=== PATIENT | female | born 1930 | race Caucasian/White ===

== ENCOUNTER 2020-07-20 06:52 | Inpatient (IN) | payer MEDICARE, BC ==
[2020-07-20 07:38] LABS: Hemoglobin 10.3 g/dL (12.0-15.5); Mean Corpuscular HGB CONC 29.6 g/dL (32.0-36.0); Mean Corpuscular Hemoglobin 23.6 pg (27.0-33.0); Mean Corpuscular Volume 79.6 fl (81.6-98.3); Mean Platelet Volume 9.8 fl (7.4-10.4); Platelet Count 366 10x3/uL (150-450); RBC Distribution Width 16.5 % (11.5-14.5); Red Blood Cell (RBC) Count 4.37 10x6/uL (3.90-5.03); White Blood Cell (WBC) Count 24.9 10x3/uL (3.5-10.5)
[2020-07-20] MEDS ORDERED: Furosemide 40 MG/4 ML VIAL ONE (07:49)
[2020-07-20 07:59] LABS: MDiff Complete? YES
[2020-07-20 08:01] LABS: Band 1 % (5-11); Lymphocytes 6 % (21-51); Monocytes 3 % (0-10); Neutrophil 88 % (42-75); Reactive Lymphocytes 1 % (0-10)
[2020-07-20 08:03] LABS: Ovalocytes SLIGHT = 2-5 cells (100X) (0-1/hpf); Platelet Morphology Comment Appears Adequate
[2020-07-20 08:32] LABS: ALT (SGPT) 23 U/L (8-55); AST (SGOT) 27 U/L (5-34); Albumin 4.4 g/dL (3.4-4.8); Alkaline Phosphatase 107 U/L (40-110); Anion Gap 15 mmol/L (10-20); BUN (Urea Nitrogen) 20 mg/dL (9.8-20.1); Bilirubin, Total 0.7 mg/dL (0.2-1.2); Calc. Creatinine Clearance 0 mL/min (70-130); Calcium 9.1 mg/dL (7.8-10.44); Carbon Dioxide 26 mmol/L (23-31); Chloride 97 mmol/L (98-107); Globulin 2.7 g/dL (2.4-3.5); Glucose 303 mg/dL (83-110); Protein, Total 7.1 g/dL (5.8-8.1); Sodium 133 mmol/L (136-145)
[2020-07-20 10:41] LABS: Troponin I 0.033 ng/mL (< 0.028)
[2020-07-20] MEDS ORDERED: Zolpidem Tartrate 5 MG TAB PO PRN (11:31)
[2020-07-20] MEDS ORDERED: Guaifenesin DM 100-10/5 ML UDCUP PO PRN (11:31)
[2020-07-20] MEDS ORDERED: Sodium Chloride 0.65% Nasal 44 ML BOT EA NARE PRN (11:31)
[2020-07-20] MEDS ORDERED: Loperamide HCl 2 MG CAP PO PRN (11:31)
[2020-07-20] MEDS ORDERED: hydrALAZINE 20 MG/ML VIAL SLOW IVP PRN (11:31)
[2020-07-20] MEDS ORDERED: Dextrose 50% Abboject 50 ML SYRINGE SLOW IVP PRN (11:31)
[2020-07-20] MEDS ORDERED: Cepastat Lozenges 1 LOZ PO PRN (11:31)
[2020-07-20] MEDS ORDERED: Bisacodyl 10 MG SUPP PR PRN (11:31)
[2020-07-20] MEDS ORDERED: Benzonatate 100 MG CAP PO PRN (11:31)
[2020-07-20] MEDS ORDERED: Dextrose 5% in Water 1,000 ML IV PRN (11:31)
[2020-07-20] MEDS ORDERED: Ondansetron PF 4 MG/2 ML Vial IVP PRN (11:31)
[2020-07-20] MEDS ORDERED: Ondansetron ODT 4 MG TAB PO PRN (11:31)
[2020-07-20] MEDS ORDERED: HYDROcodone/Acetaminophen 5/325 mg Tablet PO PRN (11:31)
[2020-07-20] MEDS ORDERED: Acetaminophen 325 MG TAB PO PRN (11:31)
[2020-07-20] MEDS ORDERED: Senokot S 8.6-50 MG TAB PO PRN (11:31)
[2020-07-20] MEDS ORDERED: Nitroglycerin 0.4 MG TAB (25 Tab Bottle) SL PRN (11:31)
[2020-07-20] MEDS ORDERED: Loratadine 10 MG TAB PO PRN (11:31)
[2020-07-20] MEDS ORDERED: Calcium Carbonate 500 MG ChewTAB PO PRN (11:31)
[2020-07-20 13:41] LABS: Troponin I 0.037 ng/mL (< 0.028)
[2020-07-20] MEDS: Furosemide 40 MG/4 ML VIAL SLOW IVP SCH (16:11)
[2020-07-20] MEDS: Carvedilol 6.25 MG TAB PO SCH (17:50)
[2020-07-20] MEDS: Rivaroxaban 10 MG TAB PO SCH (17:50)
[2020-07-20] MEDS: HumaLOG 300 UNITS/3 ML VIAL SC PRN ×2 (17:52→19:20)
[2020-07-20] MEDS: Famotidine 20 MG TAB PO SCH (20:04)
[2020-07-20] MEDS: Atorvastatin Calcium 20 MG TAB PO SCH (20:04)
[2020-07-20 23:47] LABS: Bilirubin Neg (Negative); Blood, Urine 25 (Negative); Clarity Slightly Cloudy (Clear); Glucose, Urine (Dipstick) Normal (Negative); Ketone, Urine Negative (Negative); Leukocyte 500 (Negative); Nitrite Positive (Negative); Protein, Urine (Dipstick) 30 mg/dl (Neg-Trace); Urobilinogen Normal mg/dL (Less than 2); pH, Urine 6.5 (5.0-9.0)
[2020-07-21 00:07] LABS: Bacteria/HPF 4+ HPF (None Seen); Mucous/LPF 1+ LPF (<2+); RBC/HPF 0-3 HPF (0-3); Squamous Epithelial 0-3 HPF (0-3); White Blood Cell Cast 0-3 LPF (None Seen)
[2020-07-21 02:52] LABS: SARS-CoV-2 PCR by NAA Not Detected (NotDetected)
[2020-07-21] MEDS: HumaLOG 300 UNITS/3 ML VIAL SC PRN ×3 (04:59→17:18)
[2020-07-21] MEDS: Furosemide 40 MG/4 ML VIAL SLOW IVP SCH (05:00)
[2020-07-21] MEDS ORDERED: Levothyroxine Sodium 88 MCG TAB PO SCH (06:00)
[2020-07-21] MEDS: Famotidine 20 MG TAB PO SCH ×2 (08:09→21:18)
[2020-07-21] MEDS: Carvedilol 6.25 MG TAB PO SCH ×2 (08:10→17:18)
[2020-07-21] MEDS ORDERED: Digoxin 0.125 MG TAB PO SCH ×2 (09:00→10:45)
[2020-07-21] MEDS ORDERED: Aspirin Chewable 81 MG TAB PO SCH (09:00)
[2020-07-21 09:19] LABS: ALT (SGPT) 18 U/L (8-55); AST (SGOT) 27 U/L (5-34); Albumin 3.8 g/dL (3.4-4.8); Alkaline Phosphatase 75 U/L (40-110); Anion Gap 15 mmol/L (10-20); BUN (Urea Nitrogen) 14 mg/dL (9.8-20.1); Bilirubin, Total 0.9 mg/dL (0.2-1.2); Calc. Creatinine Clearance 46 mL/min (70-130); Calcium 8.8 mg/dL (7.8-10.44); Carbon Dioxide 29 mmol/L (23-31); Chloride 94 mmol/L (98-107); Globulin 2.8 g/dL (2.4-3.5); Glucose 156 mg/dL (83-110); Magnesium 1.7 mg/dL (1.6-2.6); Potassium 3.8 mmol/L (3.5-5.1); Protein, Total 6.6 g/dL (5.8-8.1); Sodium 134 mmol/L (136-145); Uric Acid 5.3 mg/dL (2.6-6.0)
[2020-07-21 09:21] LABS: Digoxin 0.43 ng/mL (0.8-2.0)
[2020-07-21 09:43] LABS: Hemoglobin 9.7 g/dL (12.0-15.5); Mean Corpuscular HGB CONC 29.8 g/dL (32.0-36.0); Mean Corpuscular Hemoglobin 23.2 pg (27.0-33.0); Mean Corpuscular Volume 77.8 fl (81.6-98.3); Mean Platelet Volume 9.9 fl (7.4-10.4); Platelet Count 295 10x3/uL (150-450); RBC Distribution Width 16.4 % (11.5-14.5); Red Blood Cell (RBC) Count 4.18 10x6/uL (3.90-5.03); White Blood Cell (WBC) Count 11.9 10x3/uL (3.5-10.5)
[2020-07-21 10:28] LABS: Anisocytosis SLIGHT = 6-15 cells (100X) (0-5/hpf); Eosinophils 1 % (0-10); Lymphocytes 9 % (21-51); MDiff Complete? YES; Microcytosis SLIGHT = 6-15 cells (100X) (0-5/hpf); Monocytes 9 % (0-10); Neutrophil 81 % (42-75); Poikilocytosis SLIGHT = 6-15 cells (100X) (0-5/hpf)
[2020-07-21 10:29] LABS: Hypochromia MODERATE=16-30 cells (100X) (0-5/hpf); Polychromasia SLIGHT = 2-3 cells (100X) (0-2/hpf)
[2020-07-21 10:30] LABS: Elliptocytes SLIGHT = 2-5 cells (100X) (0-1/hpf); Platelet Morphology Comment Appears Adequate
[2020-07-21] MEDS ORDERED: Spironolactone 25 MG TAB PO SCH (11:30)
[2020-07-21] MEDS: Rivaroxaban 10 MG TAB PO SCH (17:18)
[2020-07-21] MEDS: Atorvastatin Calcium 20 MG TAB PO SCH (21:17)
[2020-07-22] MEDS: Levothyroxine Sodium 100 MCG TAB PO SCH (05:13)
[2020-07-22] MEDS: HumaLOG 300 UNITS/3 ML VIAL SC PRN ×4 (05:25→20:28)
[2020-07-22 08:20] LABS: Anion Gap 12 mmol/L (10-20); BUN (Urea Nitrogen) 19 mg/dL (9.8-20.1); Calc. Creatinine Clearance 43 mL/min (70-130); Calcium 8.6 mg/dL (7.8-10.44); Carbon Dioxide 31 mmol/L (23-31); Chloride 96 mmol/L (98-107); Glucose 168 mg/dL (83-110); Magnesium 1.9 mg/dL (1.6-2.6); Potassium 3.7 mmol/L (3.5-5.1); Sodium 135 mmol/L (136-145)
[2020-07-22] MEDS: Carvedilol 6.25 MG TAB PO SCH ×2 (08:38→17:39)
[2020-07-22] MEDS: Digoxin 0.25 MG TAB PO SCH (08:38)
[2020-07-22] MEDS: Famotidine 20 MG TAB PO SCH ×2 (08:38→20:33)
[2020-07-22 08:40] LABS: #Basophils 0.1 10x3/uL (0.0-0.2); #Eosinphils 0.2 10x3/uL (0.0-0.5); #Neutrophils 8.1 10x3/uL (1.5-8.4); %Basophils 0.5 % (0.0-2.0); %Eosinophils 1.8 % (0.0-6.0); %Lymphocytes 8.8 % (18.0-47.0); %Monocytes 9.6 % (0.0-10.0); %Neutrophils 78.9 % (40.0-75.0); Hemoglobin 9.1 g/dL (12.0-15.5); Mean Corpuscular HGB CONC 29.6 g/dL (32.0-36.0); Mean Corpuscular Hemoglobin 23.2 pg (27.0-33.0); Mean Corpuscular Volume 78.3 fl (81.6-98.3); Mean Platelet Volume 9.9 fl (7.4-10.4); Platelet Count 270 10x3/uL (150-450); RBC Distribution Width 16.3 % (11.5-14.5); Red Blood Cell (RBC) Count 3.92 10x6/uL (3.90-5.03); White Blood Cell (WBC) Count 10.2 10x3/uL (3.5-10.5)
[2020-07-22] MEDS ORDERED: Furosemide 40 MG/4 ML VIAL SLOW IVP SCH (09:00)
[2020-07-22 09:33] LABS: Anisocytosis SLIGHT = 6-15 cells (100X) (0-5/hpf); Elliptocytes SLIGHT = 2-5 cells (100X) (0-1/hpf); Hypochromia SLIGHT = 6-15 cells (100X) (0-5/hpf); Microcytosis SLIGHT = 6-15 cells (100X) (0-5/hpf); Polychromasia SLIGHT = 2-3 cells (100X) (0-2/hpf)
[2020-07-22 09:34] LABS: Platelet Morphology Comment Appears Adequate
[2020-07-22] MEDS: Rivaroxaban 10 MG TAB PO SCH (17:39)
[2020-07-22] MEDS: Atorvastatin Calcium 20 MG TAB PO SCH (20:34)
[2020-07-23] MEDS: HumaLOG 300 UNITS/3 ML VIAL SC PRN ×2 (04:49→11:58)
[2020-07-23] MEDS: Levothyroxine Sodium 100 MCG TAB PO SCH (05:05)
[2020-07-23 06:15] VITALS: BMI 23.6
[2020-07-23 06:44] LABS: #Eosinphils 0.2 10x3/uL (0.0-0.5); #Monocytes 0.8 10x3/uL (0.0-1.1); #Neutrophils 7.8 10x3/uL (1.5-8.4); %Basophils 0.4 % (0.0-2.0); %Eosinophils 1.7 % (0.0-6.0); %Lymphocytes 10.3 % (18.0-47.0); %Monocytes 8.4 % (0.0-10.0); %Neutrophils 78.8 % (40.0-75.0); Hemoglobin 9.2 g/dL (12.0-15.5); Mean Corpuscular HGB CONC 29.5 g/dL (32.0-36.0); Mean Platelet Volume 10.2 fl (7.4-10.4); Platelet Count 304 10x3/uL (150-450); RBC Distribution Width 16.2 % (11.5-14.5); White Blood Cell (WBC) Count 9.8 10x3/uL (3.5-10.5)
[2020-07-23 07:01] LABS: Anion Gap 13 mmol/L (10-20); BUN (Urea Nitrogen) 18 mg/dL (9.8-20.1); Calc. Creatinine Clearance 48 mL/min (70-130); Calcium 8.7 mg/dL (7.8-10.44); Carbon Dioxide 32 mmol/L (23-31); Chloride 96 mmol/L (98-107); Glucose 167 mg/dL (83-110); Magnesium 1.9 mg/dL (1.6-2.6); Potassium 3.9 mmol/L (3.5-5.1); Sodium 137 mmol/L (136-145)
[2020-07-23] MEDS ORDERED: Furosemide 40 MG TAB PO SCH (07:30)
[2020-07-23] MEDS: Carvedilol 6.25 MG TAB PO SCH (08:11)
[2020-07-23] MEDS: Digoxin 0.25 MG TAB PO SCH (08:11)
[2020-07-23] MEDS ORDERED: Famotidine 20 MG TAB PO SCH (09:00)
[2020-07-23] MEDS ORDERED: Magnesium Oxide 400 MG TAB PO SCH (09:00)
[2020-07-23 13:13] VITALS: BP 130/50; TEMP 97.4
[2020-07-24] MEDS ORDERED: Spironolactone 25 MG TAB PO SCH (08:00)
== END 2020-07-23 13:16 | disposition home or self-care (01) | DRG 281 ==
LOC: CSHERS 06:52 → CSHTELE 14:11
PROVIDERS: ADMIT Internal Medicine; ATTEND Family Medicine
DX: I50.33 Acute on chronic diastolic (congestive) heart failure (principal); I21.A1 Myocardial infarction type 2; E87.1 Hypo-osmolality and hyponatremia; J96.11 Chronic respiratory failure with hypoxia; I48.19 Other persistent atrial fibrillation; Z79.01 Long term (current) use of anticoagulants; E11.9 Type 2 diabetes mellitus without complications; E78.5 Hyperlipidemia, unspecified; I11.0 Hypertensive heart disease with heart failure; D50.9 Iron deficiency anemia, unspecified; J44.9 Chronic obstructive pulmonary disease, unspecified; I25.10 Atherosclerotic heart disease of native coronary artery without angina pectoris; E03.9 Hypothyroidism, unspecified; Z95.0 Presence of cardiac pacemaker; Z20.822 Contact with and (suspected) exposure to COVID-19
CPT/HCPCS: 36415; 36416; 71045; 80048; 80053; 80162; 81001; 83735; 83880; 84443; 84484; 84550; 85007; 85025; 85027; 87635; 93005; 93306; 94760; 96374; 96375; J1815; J1940; U0003; U0005

== ENCOUNTER 2021-02-18 12:22 | Outpatient (CLI) | payer MEDICARE, BC | END 2021-02-18 12:23 | disposition home or self-care (01) | LOC: CSHRAD 12:22 | PROVIDERS: ATTEND Specialist | DX: R06.02 Shortness of breath (principal); R91.8 Other nonspecific abnormal finding of lung field | CPT/HCPCS: 71046 ==

== ENCOUNTER 2021-02-20 09:17 | Emergency (ER) | payer MEDICARE, BC ==
[2021-02-20] MEDS ORDERED: Ondansetron PF 4 MG/2 ML Vial ONE (10:19)
[2021-02-20 10:23] LABS: ALT (SGPT) 24 U/L (8-55); AST (SGOT) 32 U/L (5-34); Albumin 4.3 g/dL (3.4-4.8); Alkaline Phosphatase 88 U/L (40-110); Anion Gap 17 mmol/L (10-20); BUN (Urea Nitrogen) 18 mg/dL (9.8-20.1); Bilirubin, Total 1.1 mg/dL (0.2-1.2); Calc. Creatinine Clearance 0 mL/min (70-130); Calcium 9.1 mg/dL (7.8-10.44); Carbon Dioxide 28 mmol/L (23-31); Chloride 85 mmol/L (98-107); Globulin 3.3 g/dL (2.4-3.5); Glucose 204 mg/dL (83-110); Magnesium 1.9 mg/dL (1.6-2.6); Potassium 4.7 mmol/L (3.5-5.1); Protein, Total 7.6 g/dL (5.8-8.1); Sodium 125 mmol/L (136-145)
[2021-02-20 10:25] LABS: #Monocytes 0.6 10x3/uL (0.0-1.1); #Neutrophils 11.1 10x3/uL (1.5-8.4); %Basophils 0.2 % (0.0-2.0); %Eosinophils 0.1 % (0.0-6.0); %Lymphocytes 3.9 % (18.0-47.0); %Monocytes 4.5 % (0.0-10.0); %Neutrophils 90.3 % (40.0-75.0); Hemoglobin 10.4 g/dL (12.0-15.5); Mean Corpuscular HGB CONC 29.8 g/dL (32.0-36.0); Mean Corpuscular Hemoglobin 20.1 pg (27.0-33.0); Mean Corpuscular Volume 67.5 fl (81.6-98.3); Mean Platelet Volume 9.7 fl (7.4-10.4); Platelet Count 350 10x3/uL (150-450); Red Blood Cell (RBC) Count 5.17 10x6/uL (3.90-5.03); White Blood Cell (WBC) Count 12.3 10x3/uL (3.5-10.5)
[2021-02-20 10:32] LABS: Bilirubin Neg (Negative); Blood, Urine Negative (Negative); Clarity Slightly Cloudy (Clear); Glucose, Urine (Dipstick) Normal (Negative); Ketone, Urine Negative (Negative); Leukocyte Negative (Negative); Nitrite Positive (Negative); Protein, Urine (Dipstick) 30 mg/dl (Neg-Trace); Specific Gravity, Urine 1.005 (1.002-1.036); Urobilinogen Normal mg/dL (Less than 2)
[2021-02-20 10:42] LABS: Bacteria/HPF 3+ HPF (None Seen); RBC/HPF 0-3 HPF (0-3); Squamous Epithelial 0-3 HPF (0-3)
[2021-02-20 11:05] LABS: Hypochromia SLIGHT = 6-15 cells (100X) (0-5/hpf); Ovalocytes SLIGHT = 2-5 cells (100X) (0-1/hpf)
[2021-02-20 11:07] LABS: Microcytosis MODERATE=15-30 cells (100X) (0-5/hpf); Platelet Morphology Comment Appears Adequate
[2021-02-20] MEDS ORDERED: cefTRIAXone\\ROCEPHIN 1 GM VIAL ONE (11:07)
[2021-02-20 12:44] LABS: Lactic Acid 1.1 mmol/L (0.5-2.2)
[2021-02-20 17:13] LABS: SARS-CoV-2 NAA Rapid Test Not Detected (NotDetected)
== END 2021-02-20 17:29 | disposition short-term general hospital (02) ==
LOC: CSHERS 09:17
DX: E87.1 Hypo-osmolality and hyponatremia (principal); N39.0 Urinary tract infection, site not specified; J90 Pleural effusion, not elsewhere classified; D72.829 Elevated white blood cell count, unspecified; I49.9 Cardiac arrhythmia, unspecified; I11.0 Hypertensive heart disease with heart failure; I50.9 Heart failure, unspecified; I48.91 Unspecified atrial fibrillation; I25.10 Atherosclerotic heart disease of native coronary artery without angina pectoris; E11.9 Type 2 diabetes mellitus without complications; E03.9 Hypothyroidism, unspecified; E78.5 Hyperlipidemia, unspecified; J44.9 Chronic obstructive pulmonary disease, unspecified; Z79.84 Long term (current) use of oral hypoglycemic drugs; Z79.899 Other long term (current) drug therapy
CPT/HCPCS: 71045; 71260; 83605; 83735; 83880; 84484; 87040; 87086; 93005; U0002; 36415; 80053; 81003; 81015; 84443; 85025; J0696; J2405; J3370

== ENCOUNTER 2021-03-28 11:30 | Outpatient (CLI) | payer MEDICARE, BC | END 2021-03-28 11:31 | disposition home or self-care (01) | LOC: CSHCT 11:30 | PROVIDERS: ATTEND Internal Medicine Critical Care Medicine | DX: R91.8 Other nonspecific abnormal finding of lung field (principal); R59.0 Localized enlarged lymph nodes; R16.0 Hepatomegaly, not elsewhere classified | CPT/HCPCS: 71250 ==

== ENCOUNTER 2021-05-10 06:52 | Inpatient (IN) | payer MEDICARE, BC ==
[2021-05-10 07:40] LABS: #Basophils 0.1 10x3/uL (0.0-0.2); #Monocytes 0.7 10x3/uL (0.0-1.1); #Neutrophils 11.3 10x3/uL (1.5-8.4); %Basophils 0.5 % (0.0-2.0); %Eosinophils 0.3 % (0.0-6.0); %Lymphocytes 5.7 % (18.0-47.0); %Monocytes 5.6 % (0.0-10.0); %Neutrophils 87.4 % (40.0-75.0); Mean Corpuscular HGB CONC 28.6 g/dL (32.0-36.0); Mean Corpuscular Hemoglobin 20.7 pg (27.0-33.0); Mean Corpuscular Volume 72.4 fl (81.6-98.3); Mean Platelet Volume 9.6 fl (7.4-10.4); Platelet Count 368 10x3/uL (150-450); RBC Distribution Width 21.2 % (11.5-14.5); Red Blood Cell (RBC) Count 4.35 10x6/uL (3.90-5.03); White Blood Cell (WBC) Count 12.9 10x3/uL (3.5-10.5)
[2021-05-10] MEDS ORDERED: Nitroglycerin 0.4 MG TAB 1 EACH ONE (07:42)
[2021-05-10] MEDS ORDERED: Furosemide 40 MG/4 ML VIAL ONE (07:42)
[2021-05-10 07:49] LABS: INR-International Normal Ratio 1.1; PTT 28.3 sec (22.0-33.0); Prothrombin Time 12.5 sec (9.5-12.1)
[2021-05-10 07:58] LABS: ALT (SGPT) 23 U/L (8-55); AST (SGOT) 36 U/L (5-34); Albumin 4.2 g/dL (3.4-4.8); Alkaline Phosphatase 78 U/L (40-110); Anion Gap 16 mmol/L (10-20); BUN (Urea Nitrogen) 34 mg/dL (9.8-20.1); Bilirubin, Total 0.9 mg/dL (0.2-1.2); Calc. Creatinine Clearance 0 mL/min (70-130); Carbon Dioxide 28 mmol/L (23-31); Chloride 94 mmol/L (98-107); Digoxin 1.84 ng/mL (0.8-2.0); Globulin 3.9 g/dL (2.4-3.5); Glucose 172 mg/dL (83-110); Potassium 4.6 mmol/L (3.5-5.1); Protein, Total 8.1 g/dL (5.8-8.1); Sodium 133 mmol/L (136-145)
[2021-05-10 08:19] LABS: Hypochromia SLIGHT = 6-15 cells (100X) (0-5/hpf); Microcytosis SLIGHT = 6-15 cells (100X) (0-5/hpf); Ovalocytes SLIGHT = 2-5 cells (100X) (0-1/hpf); Platelet Morphology Comment Appears Adequate
[2021-05-10 08:36] LABS: CKMB 2.9 ng/mL (0-6.6)
[2021-05-10 10:08] LABS: SARS-CoV-2 NAA Rapid Test Not Detected (NotDetected)
[2021-05-10] MEDS ORDERED: Senokot S 8.6-50 MG TAB PO PRN (10:18)
[2021-05-10] MEDS ORDERED: Ondansetron ODT 4 MG TAB PO PRN (10:18)
[2021-05-10] MEDS: Nateglinide 120 MG TAB PO SCH ×3 (13:19→22:23)
[2021-05-10] MEDS ORDERED: Furosemide 40 MG/4 ML VIAL SLOW IVP SCH (14:00)
[2021-05-10 16:12] LABS: Bilirubin Neg (Negative); Blood, Urine Negative (Negative); Clarity Slightly Cloudy (Clear); Glucose, Urine (Dipstick) Normal (Negative); Ketone, Urine Negative (Negative); Leukocyte Negative (Negative); Nitrite Positive (Negative); Protein, Urine (Dipstick) 15 mg/dl (Neg-Trace); Urobilinogen Normal mg/dL (Less than 2)
[2021-05-10] MEDS: Carvedilol 6.25 MG TAB PO SCH (16:28)
[2021-05-10] MEDS: metFORMIN 500 MG TAB PO SCH (16:28)
[2021-05-10 16:34] LABS: Bacteria/HPF 4+ HPF (None Seen); RBC/HPF 0-3 HPF (0-3); Squamous Epithelial 0-3 HPF (0-3)
[2021-05-10 16:35] LABS: Urine Culture Reflex Yes Yes
[2021-05-10] MEDS ORDERED: Furosemide 20 MG TAB PO SCH (17:00)
[2021-05-10] MEDS: Atorvastatin Calcium 10 MG TAB PO SCH (22:24)
[2021-05-10] MEDS: Famotidine 20 MG TAB PO SCH (22:24)
[2021-05-10] MEDS: Enoxaparin Sodium 60 MG/0.6 ML SYRINGE SC SCH (22:24)
[2021-05-10] MEDS: Acetaminophen 325 MG TAB PO PRN (22:35)
[2021-05-11 05:05] LABS: #Eosinphils 0.1 10x3/uL (0.0-0.5); #Monocytes 0.8 10x3/uL (0.0-1.1); #Neutrophils 6.1 10x3/uL (1.5-8.4); %Basophils 0.5 % (0.0-2.0); %Eosinophils 0.9 % (0.0-6.0); %Lymphocytes 8.5 % (18.0-47.0); %Neutrophils 79.6 % (40.0-75.0); Hemoglobin 8.2 g/dL (12.0-15.5); Mean Corpuscular HGB CONC 29.1 g/dL (32.0-36.0); Mean Corpuscular Hemoglobin 20.9 pg (27.0-33.0); Mean Corpuscular Volume 71.9 fl (81.6-98.3); Mean Platelet Volume 9.9 fl (7.4-10.4); Platelet Count 334 10x3/uL (150-450); RBC Distribution Width 20.9 % (11.5-14.5); Red Blood Cell (RBC) Count 3.92 10x6/uL (3.90-5.03); White Blood Cell (WBC) Count 7.7 10x3/uL (3.5-10.5)
[2021-05-11 05:17] LABS: Albumin 3.6 g/dL (3.4-4.8); Anion Gap 16 mmol/L (10-20); BUN (Urea Nitrogen) 35 mg/dL (9.8-20.1); BUN/Creatinine Ratio 28.46; Calc. Creatinine Clearance 29 mL/min (70-130); Calcium 8.9 mg/dL (7.8-10.44); Carbon Dioxide 29 mmol/L (23-31); Chloride 95 mmol/L (98-107); Glucose 87 mg/dL (83-110); Sodium 136 mmol/L (136-145)
[2021-05-11] MEDS: Levothyroxine Sodium 100 MCG TAB PO SCH (05:42)
[2021-05-11 06:11] VITALS: BMI 20.3
[2021-05-11 06:28] LABS: Platelet Morphology Comment Appears Adequate
[2021-05-11 06:30] LABS: Anisocytosis SLIGHT = 6-15 cells (100X) (0-5/hpf); Burr Cells SLIGHT = 2-5 cells (100X) (0-1/hpf); Elliptocytes SLIGHT = 2-5 cells (100X) (0-1/hpf); Hypochromia MODERATE=16-30 cells (100X) (0-5/hpf); Macrocytosis SLIGHT = 6-15 cells (100X) (0-5/hpf); Microcytosis SLIGHT = 6-15 cells (100X) (0-5/hpf); Polychromasia SLIGHT = 2-3 cells (100X) (0-2/hpf); Target Cells SLIGHT = 2-5 cells (100X) (0-1/hpf)
[2021-05-11] MEDS ORDERED: Furosemide 40 MG TAB PO SCH (07:30)
[2021-05-11] MEDS: Alogliptin 6.25 MG TAB PO SCH (08:21)
[2021-05-11] MEDS: Digoxin 0.125 MG TAB PO SCH (08:21)
[2021-05-11] MEDS: Furosemide 40 MG/4 ML VIAL SLOW IVP SCH (08:21)
[2021-05-11] MEDS: Nateglinide 120 MG TAB PO SCH ×4 (08:22→20:34)
[2021-05-11] MEDS: Carvedilol 6.25 MG TAB PO SCH ×2 (08:22→16:42)
[2021-05-11] MEDS: Spironolactone 25 MG TAB PO SCH (08:22)
[2021-05-11] MEDS: Famotidine 20 MG TAB PO SCH (08:22)
[2021-05-11] MEDS: metFORMIN 500 MG TAB PO SCH (08:22)
[2021-05-11] MEDS: Enoxaparin Sodium 60 MG/0.6 ML SYRINGE SC SCH (08:23)
[2021-05-11] MEDS ORDERED: Rivaroxaban 15 MG TAB PO SCH (09:00)
[2021-05-11] MEDS ORDERED: Dextrose 50% Abboject 50 ML SYRINGE SLOW IVP PRN (09:59)
[2021-05-11] MEDS ORDERED: Dextrose 5% in Water 1,000 ML IV PRN (09:59)
[2021-05-11] MEDS ORDERED: HumaLOG 300 UNITS/3 ML VIAL SC PRN (09:59)
[2021-05-11] MEDS ORDERED: Furosemide 40 MG/4 ML VIAL SLOW IVP SCH (14:00)
[2021-05-11] MEDS: Sacubitril 49 MG/Valsartan 51 MG TABLET PO SCH (16:42)
[2021-05-11] MEDS: Acetaminophen 325 MG TAB PO PRN (20:33)
[2021-05-11] MEDS: Atorvastatin Calcium 10 MG TAB PO SCH (20:35)
[2021-05-12] MEDS: Levothyroxine Sodium 100 MCG TAB PO SCH (06:45)
[2021-05-12] MEDS: Nateglinide 120 MG TAB PO SCH ×4 (06:45→20:40)
[2021-05-12] MEDS ORDERED: Enoxaparin Sodium 60 MG/0.6 ML SYRINGE SC SCH (09:00)
[2021-05-12] MEDS: Furosemide 40 MG/4 ML VIAL SLOW IVP SCH (09:13)
[2021-05-12] MEDS: cefTRIAXone\\ROCEPHIN 1 GM in Sodium Chloride 0.9% 100 ML IVPB SCH (09:13)
[2021-05-12] MEDS: Carvedilol 6.25 MG TAB PO SCH ×2 (09:14→17:12)
[2021-05-12] MEDS: Alogliptin 6.25 MG TAB PO SCH (09:14)
[2021-05-12] MEDS: Spironolactone 25 MG TAB PO SCH (09:14)
[2021-05-12] MEDS: Digoxin 0.125 MG TAB PO SCH (09:14)
[2021-05-12] MEDS: Famotidine 20 MG TAB PO SCH (09:14)
[2021-05-12] MEDS: Sacubitril 49 MG/Valsartan 51 MG TABLET PO SCH ×2 (09:15→20:40)
[2021-05-12] MEDS: HumaLOG 300 UNITS/3 ML VIAL SC PRN (12:08)
[2021-05-12] MEDS: Atorvastatin Calcium 10 MG TAB PO SCH (20:40)
[2021-05-13] MEDS: Levothyroxine Sodium 100 MCG TAB PO SCH (05:41)
[2021-05-13] MEDS ORDERED: Rivaroxaban 15 MG TAB PO SCH (08:00)
[2021-05-13 08:54] LABS: #Eosinphils 0.1 10x3/uL (0.0-0.5); #Monocytes 0.8 10x3/uL (0.0-1.1); #Neutrophils 6.5 10x3/uL (1.5-8.4); %Basophils 0.4 % (0.0-2.0); %Eosinophils 1.6 % (0.0-6.0); %Lymphocytes 7.3 % (18.0-47.0); %Monocytes 9.9 % (0.0-10.0); %Neutrophils 80.1 % (40.0-75.0); Hemoglobin 8.9 g/dL (12.0-15.5); Mean Corpuscular HGB CONC 29.2 g/dL (32.0-36.0); Mean Corpuscular Hemoglobin 20.9 pg (27.0-33.0); Mean Corpuscular Volume 71.8 fl (81.6-98.3); Mean Platelet Volume 9.4 fl (7.4-10.4); Platelet Count 329 10x3/uL (150-450); Red Blood Cell (RBC) Count 4.25 10x6/uL (3.90-5.03); White Blood Cell (WBC) Count 8.1 10x3/uL (3.5-10.5)
[2021-05-13 08:56] LABS: Anion Gap 13 mmol/L (10-20); BUN (Urea Nitrogen) 31 mg/dL (9.8-20.1); Calc. Creatinine Clearance 31 mL/min (70-130); Calcium 9.3 mg/dL (7.8-10.44); Carbon Dioxide 32 mmol/L (23-31); Chloride 95 mmol/L (98-107); Glucose 143 mg/dL (83-110); Potassium 4.2 mmol/L (3.5-5.1); Sodium 136 mmol/L (136-145)
[2021-05-13] MEDS: Digoxin 0.125 MG TAB PO SCH (09:02)
[2021-05-13] MEDS: Famotidine 20 MG TAB PO SCH (09:02)
[2021-05-13] MEDS: Furosemide 40 MG TAB PO SCH (09:02)
[2021-05-13] MEDS: Alogliptin 6.25 MG TAB PO SCH (09:02)
[2021-05-13] MEDS: Spironolactone 25 MG TAB PO SCH (09:02)
[2021-05-13] MEDS: Carvedilol 6.25 MG TAB PO SCH ×2 (09:02→16:56)
[2021-05-13] MEDS: Nateglinide 120 MG TAB PO SCH ×4 (09:03→21:52)
[2021-05-13] MEDS: Sacubitril 49 MG/Valsartan 51 MG TABLET PO SCH ×2 (09:03→21:57)
[2021-05-13] MEDS ORDERED: cefTRIAXone\\ROCEPHIN 1 GM VIAL ONE (09:10)
[2021-05-13] MEDS: cefTRIAXone\\ROCEPHIN 1 GM in Sodium Chloride 0.9% 100 ML IVPB SCH (09:10)
[2021-05-13] MEDS: HumaLOG 300 UNITS/3 ML VIAL SC PRN (12:02)
[2021-05-13] MEDS ORDERED: Enoxaparin Sodium 60 MG/0.6 ML SYRINGE SC SCH (21:00)
[2021-05-13] MEDS: Atorvastatin Calcium 10 MG TAB PO SCH (21:57)
[2021-05-13] MEDS: Acetaminophen 325 MG TAB PO PRN (22:01)
[2021-05-14] MEDS ORDERED: Melatonin 3 MG TAB PO SCH (02:45)
[2021-05-14] MEDS: Levothyroxine Sodium 100 MCG TAB PO SCH (06:37)
[2021-05-14] MEDS: Furosemide 40 MG TAB PO SCH (06:37)
[2021-05-14] MEDS: Nateglinide 120 MG TAB PO SCH ×4 (06:41→21:41)
[2021-05-14] MEDS ORDERED: Sodium Bicarbonate 2.5 MEQ/5 ML VIAL ONE (09:05)
[2021-05-14] MEDS ORDERED: Lidocaine 1% PF 5 ML VIAL ONE (09:05)
[2021-05-14] MEDS: Carvedilol 6.25 MG TAB PO SCH ×2 (09:07→17:02)
[2021-05-14] MEDS: Alogliptin 6.25 MG TAB PO SCH (09:07)
[2021-05-14] MEDS: Famotidine 20 MG TAB PO SCH (09:07)
[2021-05-14] MEDS: Digoxin 0.125 MG TAB PO SCH (09:07)
[2021-05-14] MEDS: cefTRIAXone\\ROCEPHIN 1 GM in Sodium Chloride 0.9% 100 ML IVPB SCH (09:08)
[2021-05-14] MEDS: Sacubitril 49 MG/Valsartan 51 MG TABLET PO SCH ×2 (09:08→21:41)
[2021-05-14] MEDS: Spironolactone 25 MG TAB PO SCH (09:08)
[2021-05-14 11:33] LABS: Fluid, pH - Pleural Fld Greater than 7.50 (7.60 - 7.66)
[2021-05-14 11:36] LABS: BF Color Yellow; Body Fluid Source Thoracentesis Fluid; Clarity Hazy (Clear); Tube # EDTA
[2021-05-14] MEDS: HumaLOG 300 UNITS/3 ML VIAL SC PRN (12:03)
[2021-05-14 12:30] LABS: BF Segmented Neutrophils 2 %; Eosinophils 1 %
[2021-05-14 12:32] LABS: Cell Count Non Hematic 37 %; Lymphocytes 60 %
[2021-05-14 13:04] LABS: #Eosinphils 0.1 10x3/uL (0.0-0.5); #Monocytes 0.5 10x3/uL (0.0-1.1); #Neutrophils 6.8 10x3/uL (1.5-8.4); %Basophils 0.2 % (0.0-2.0); %Eosinophils 0.7 % (0.0-6.0); %Lymphocytes 6.9 % (18.0-47.0); %Monocytes 6.4 % (0.0-10.0); %Neutrophils 85.3 % (40.0-75.0); Hemoglobin 8.8 g/dL (12.0-15.5); Mean Corpuscular HGB CONC 28.4 g/dL (32.0-36.0); Mean Corpuscular Hemoglobin 20.9 pg (27.0-33.0); Mean Corpuscular Volume 73.6 fl (81.6-98.3); Mean Platelet Volume 9.8 fl (7.4-10.4); Platelet Count 322 10x3/uL (150-450); RBC Distribution Width 20.9 % (11.5-14.5); Red Blood Cell (RBC) Count 4.21 10x6/uL (3.90-5.03)
[2021-05-14 13:09] LABS: Anion Gap 15 mmol/L (10-20); BUN (Urea Nitrogen) 29 mg/dL (9.8-20.1); Calc. Creatinine Clearance 27 mL/min (70-130); Calcium 8.9 mg/dL (7.8-10.44); Carbon Dioxide 30 mmol/L (23-31); Chloride 93 mmol/L (98-107); Glucose 229 mg/dL (83-110); Sodium 134 mmol/L (136-145)
[2021-05-14 19:21] LABS: Pleural Fluid, Protein 4.2 g/dL
[2021-05-14] MEDS: Acetaminophen 325 MG TAB PO PRN (21:41)
[2021-05-14] MEDS: Atorvastatin Calcium 10 MG TAB PO SCH (21:41)
[2021-05-15] MEDS ORDERED: Melatonin 3 MG TAB PO PRN (00:31)
[2021-05-15 05:04] LABS: Anion Gap 13 mmol/L (10-20); BUN (Urea Nitrogen) 34 mg/dL (9.8-20.1); Calc. Creatinine Clearance 25 mL/min (70-130); Calcium 8.9 mg/dL (7.8-10.44); Carbon Dioxide 31 mmol/L (23-31); Chloride 96 mmol/L (98-107); Glucose 91 mg/dL (83-110); Potassium 3.9 mmol/L (3.5-5.1); Sodium 136 mmol/L (136-145)
[2021-05-15 05:16] LABS: #Basophils 0.1 10x3/uL (0.0-0.2); #Eosinphils 0.1 10x3/uL (0.0-0.5); #Neutrophils 5.3 10x3/uL (1.5-8.4); %Basophils 0.7 % (0.0-2.0); %Eosinophils 1.2 % (0.0-6.0); %Lymphocytes 12.2 % (18.0-47.0); %Monocytes 13.3 % (0.0-10.0); %Neutrophils 72.2 % (40.0-75.0); Hemoglobin 8.2 g/dL (12.0-15.5); Mean Corpuscular HGB CONC 29.2 g/dL (32.0-36.0); Mean Corpuscular Hemoglobin 20.9 pg (27.0-33.0); Mean Corpuscular Volume 71.5 fl (81.6-98.3); Mean Platelet Volume 9.7 fl (7.4-10.4); Platelet Count 305 10x3/uL (150-450); RBC Distribution Width 20.8 % (11.5-14.5); Red Blood Cell (RBC) Count 3.93 10x6/uL (3.90-5.03); White Blood Cell (WBC) Count 7.4 10x3/uL (3.5-10.5)
[2021-05-15] MEDS: Furosemide 40 MG TAB PO SCH ×2 (06:06→09:42)
[2021-05-15] MEDS: Levothyroxine Sodium 100 MCG TAB PO SCH (06:06)
[2021-05-15] MEDS: Nateglinide 120 MG TAB PO SCH ×2 (06:06→09:40)
[2021-05-15 06:37] LABS: Hypochromia MARKED = >30 cells (100X) (0-5/hpf); Microcytosis MODERATE=15-30 cells (100X) (0-5/hpf)
[2021-05-15] MEDS ORDERED: Carvedilol 12.5 MG TAB PO SCH ×2 (08:30→17:00)
[2021-05-15] MEDS ORDERED: Rivaroxaban 10 MG TAB PO SCH (09:00)
[2021-05-15] MEDS: Alogliptin 6.25 MG TAB PO SCH (09:41)
[2021-05-15] MEDS: Digoxin 0.125 MG TAB PO SCH (09:41)
[2021-05-15] MEDS: Famotidine 20 MG TAB PO SCH (09:41)
[2021-05-15] MEDS: cefTRIAXone\\ROCEPHIN 1 GM in Sodium Chloride 0.9% 100 ML IVPB SCH (09:41)
[2021-05-15] MEDS: Spironolactone 25 MG TAB PO SCH (09:42)
[2021-05-15] MEDS: Sacubitril 49 MG/Valsartan 51 MG TABLET PO SCH (09:53)
[2021-05-15] MEDS: Carvedilol 6.25 MG TAB PO SCH (10:57)
[2021-05-15] MEDS: HumaLOG 300 UNITS/3 ML VIAL SC PRN (12:53)
[2021-05-15 16:21] VITALS: BP 140/62; TEMP 97.6
[2021-05-15 18:17] LABS: Fluid, pH - Pleural Fld Greater than 7.50 (7.60 - 7.66)
[2021-05-17 16:14] LABS: Fungus Stain Final report (.)
== END 2021-05-15 17:56 | disposition home or self-care (01) | DRG 291 ==
LOC: CSHERS 06:52 → SUATTDRO 06:52 → CSHTELE 10:49
PROVIDERS: ADMIT Family Medicine; ATTEND Hospitalist
PROC: 0W993ZZ Drainage of Right Pleural Cavity, Percutaneous Approach (ICD-10-PCS; principal; 2021-05-14)
DX: I11.0 Hypertensive heart disease with heart failure (principal); I50.23 Acute on chronic systolic (congestive) heart failure; J96.01 Acute respiratory failure with hypoxia; I48.11 Longstanding persistent atrial fibrillation; N39.0 Urinary tract infection, site not specified; E87.1 Hypo-osmolality and hyponatremia; J90 Pleural effusion, not elsewhere classified; E11.9 Type 2 diabetes mellitus without complications; J44.9 Chronic obstructive pulmonary disease, unspecified; E78.5 Hyperlipidemia, unspecified; E03.9 Hypothyroidism, unspecified; R16.0 Hepatomegaly, not elsewhere classified; R91.8 Other nonspecific abnormal finding of lung field; N28.9 Disorder of kidney and ureter, unspecified; Z20.822 Contact with and (suspected) exposure to COVID-19; B96.20 Unspecified Escherichia coli [E. coli] as the cause of diseases classified elsewhere; I25.10 Atherosclerotic heart disease of native coronary artery without angina pectoris; I27.20 Pulmonary hypertension, unspecified; M19.90 Unspecified osteoarthritis, unspecified site; Z88.5 Allergy status to narcotic agent; Z88.8 Allergy status to other drugs, medicaments and biological substances; Z79.899 Other long term (current) drug therapy; Z79.51 Long term (current) use of inhaled steroids; Z79.01 Long term (current) use of anticoagulants; Z99.81 Dependence on supplemental oxygen; Z90.49 Acquired absence of other specified parts of digestive tract; Z90.710 Acquired absence of both cervix and uterus; Z95.0 Presence of cardiac pacemaker
CPT/HCPCS: 32555; 36415; 36416; 71045; 71046; 80048; 80053; 80069; 80162; 81001; 82150; 82553; 82945; 83615; 83880; 83986; 84157; 84443; 84484; 85025; 85610; 85730; 87070; 87077; 87086; 87116; 87186; 87205; 87206; 88112; 88305; 89051; 93005; 93010; 93306; 94760; 96374; J0696; J1650; J1815; J1940; J3490; U0002